=== PATIENT | female | born 1960 | race Caucasian/White ===

== ENCOUNTER → 2020-07-01 08:22 | Outpatient (BNVA) | payer OTHER, SELFPAY | PROVIDERS: Family Provider Family Medicine; Referring Provider Dermatology; Visit Provider Dermatology | DX: Z85.820 Personal history of malignant melanoma of skin (principal); Z12.83 Encounter for screening for malignant neoplasm of skin; L82.1 Other seborrheic keratosis; D18.01 Hemangioma of skin and subcutaneous tissue | CPT/HCPCS: 99203 ==

== ENCOUNTER 2021-06-10 12:51 | Outpatient (CLI) | payer OTHER, SELFPAY ==
[2021-06-10 13:11] VITALS: BP 106/61; PULSE 55; RESP 14; TEMP 36.8; O2SAT 96
[2021-06-10 14:46] VITALS: BP 113/67; PULSE 51; RESP 14; TEMP 36.9; O2SAT 97
== END 2021-06-10 12:52 | disposition home or self-care (01) ==
PROVIDERS: PCP Family Medicine; Visit Provider Nurse Practitioner
DX: U07.1 COVID-19 (principal)
CPT/HCPCS: 96365

== ENCOUNTER → 2024-04-16 11:18 | Outpatient (BNVA) | payer MEDICARE, OTHER, SELFPAY | PROVIDERS: PCP Family Medicine; Visit Provider Family Medicine | DX: Z00.00 Encounter for general adult medical examination without abnormal findings (principal); Z13.6 Encounter for screening for cardiovascular disorders; F39 Unspecified mood [affective] disorder | CPT/HCPCS: 80053; 80061 ==

== ENCOUNTER → 2025-06-25 11:13 | Outpatient (BNVA) | payer MEDICARE, OTHER, SELFPAY | PROVIDERS: PCP Family Medicine; Visit Provider Family Medicine | DX: Z00.00 Encounter for general adult medical examination without abnormal findings (principal); E03.9 Hypothyroidism, unspecified | CPT/HCPCS: 80053; 80061; 82306; 82607; 84443; 85025 ==